=== PATIENT | female | born 1965 | race Two or more races ===

== ENCOUNTER 2022-08-31 17:51 | Emergency (ER) | payer OTHER ==
[~2022-08-31] VITALS: Ht 152.4 cm; Wt 90.7 kg
[~2022-08-31 17:51] MED LIST: ORPH100T PO; VOLTAREN-XR100 MG PO
== END 2022-08-31 22:06 | disposition home or self-care (01) ==
LOC: ER 17:51
DX: B37.31 Acute candidiasis of vulva and vagina (principal)

== ENCOUNTER 2022-10-02 12:24 | Emergency (ER) | payer OTHER ==
[~2022-10-02] VITALS: Ht 152.4 cm; Wt 92.1 kg
[2022-10-02] MEDS ORDERED: ZANAFLEX4 MG (12:41)
[2022-10-02] MEDS ORDERED: CLONAZEPAM1 MG PO (12:42)
[2022-10-02] MEDS ORDERED: WELLBUTRIN XL150 M1 PO (12:42)
[2022-10-02] MEDS ORDERED: PREVACID30 MG (12:43)
[2022-10-02] MEDS ORDERED: BACTRIM DS TAB1 EACH PO (18:57)
[2022-10-02] MEDS ORDERED: DICLOFENAC SODI75 MG PO (19:09)
== END 2022-10-02 19:20 | disposition home or self-care (01) ==
LOC: ER 12:24
DX: N39.0 Urinary tract infection, site not specified (principal); R10.12 Left upper quadrant pain

== ENCOUNTER 2023-03-02 14:20 | Emergency (ER) | payer OTHER ==
[~2023-03-02] VITALS: Ht 152.4 cm; Wt 90.7 kg
[~2023-03-02 14:20] MED LIST changes: +BACTRIM DS TAB1 EACH PO; +CLONAZEPAM1 MG PO; +DICLOFENAC SODI75 MG PO; +PREVACID30 MG; +WELLBUTRIN XL150 M1 PO; +ZANAFLEX4 MG
== END 2023-03-02 17:56 | disposition home or self-care (01) ==
LOC: ER 14:20
DX: M62.838 Other muscle spasm (principal)
CPT/HCPCS: 72040; 96372; 99284; J3301

== ENCOUNTER → 2023-10-09 | Emergency (ER) | payer OTHER ==
[~2023-10-09] VITALS: Ht 152.4 cm; Wt 88.5 kg
== END | disposition left against medical advice (07) ==
LOC: ER 18:58
DX: Z53.21 Procedure and treatment not carried out due to patient leaving prior to being seen by health care provider (principal)

== ENCOUNTER → 2024-12-16 | Emergency (ER) | payer OTHER ==
[~2024-12-16] VITALS: Ht 152.4 cm; Wt 83.5 kg
[2024-12-16 18:34] LABS: BASO % 0.2 % (0.1-1.2); EOS # 0.04 (0.04-0.54); EOS % 0.2 % (0.7-7.0); HEMATOCRIT 40.8 % (34.1-44.9); HEMOGLOBIN 13.5 g/dL (11.2-15.7); LYMPH # 4.67 (1.18-3.74); LYMPH % 24.3 % (19.3-53.1); MEAN CORPUSCULAR HEMOGLOBIN 29.2 pg (25.6-32.2); MONO # 1.56 (0.24-0.82); MONO % 8.1 % (4.7-12.5); NEUT # 12.82 (1.56-6.13); NEUT % 66.8 % (34.0-71.1); PLATELET COUNT 480 K/uL (163-369); RED BLOOD COUNT 4.62 M/uL (3.93-5.22); RED CELL DISTRIBUTION WIDTH 12.9 % (11.6-14.4)
[2024-12-16 19:44] LABS: INFLUENZA A AG NEGATIVE (NEGATIVE); INFLUENZA B AG NEGATIVE (NEGATIVE)
[2024-12-16 19:52] LABS: COVID-19 AG NEGATIVE (NEGATIVE)
== END | disposition home or self-care (01) ==
LOC: ER 15:43
PROVIDERS: General Practice
DX: R05.9 Cough, unspecified (principal); Z20.822 Contact with and (suspected) exposure to COVID-19